=== PATIENT | male | born 1945 | race Caucasian/White ===

== ENCOUNTER 2018-12-24 09:58 | Emergency (ER) | payer MEDICARE, SELFPAY ==
[2018-12-24 10:03] VITALS: BP 145/60; PULSE 80; RESP 16; TEMP 36.4; O2SAT 99
[2018-12-24 10:32] LABS: Add Manual Diff / Slide Review NO; Basophils Absolute Auto 0 /uL (0-100); Basophils Percent Auto 0.2 % (0-2); Eosinophils Absolute Auto 0 /uL (0-450); Eosinophils Percent Auto 0.1 % (2-4); Hematocrit 45.4 % (41-53); Hemoglobin 15.8 g/dL (13.5-17.5); Lymphocytes Absolute Auto 1200 /uL (1100-4500); Lymphocytes Percent Auto 8.1 % (25-40); Mean Corpuscular HGB Conc 34.8 % (30-36); Mean Corpuscular Hemoglobin 29.9 PG (26-34); Mean Corpuscular Volume 85.7 fL (80-100); Monocytes Absolute Auto 1700 /uL (0-900); Monocytes Percent Auto 11.8 % (3-14); Neutrophils Absolute Auto 11800 /uL (1500-7000); Neutrophils Percent Auto 79.8 % (50-75); Platelet Count 149 X10^3/uL (150-400); Red Blood Cell Count 5.29 X10^6/uL (4.5-5.9); Red Cell Distribution Width 14.4 % (11.6-14.8); White Blood Cell Count 14.7 X10^3/uL (4.5-11.0)
[2018-12-24 10:33] LABS: Alanine Aminotransferase 23 IU/L (21-72); Albumin 4.5 g/dL (3.5-5.0); Albumin Globulin Ratio 1.3 (1.0-2.8); Alkaline Phosphatase 84 U/L (38-126); Aspartate Aminotransferase 30 IU/L (17-59); BUN Creatinine Ratio 16.7 (6-22); Bilirubin Total 1.4 mg/dL (0.2-1.3); Blood Urea Nitrogen 25 mg/dL (9-20); Calcium 9.2 mg/dL (8.4-10.2); Carbon Dioxide 28 mmol/L (22-32); Chloride 96 mmol/L (98-107); Estimated Glomerular Filt Rate 45.9 mL/min (>60); Globulin 3.4 g/dL (1.7-4.1); Glucose 114 mg/dL (80-110); HEMOLYSIS < 15 (0-50); Potassium 3.3 mmol/L (3.4-5.1); Sodium 137 mmol/L (137-145); Total Protein 7.9 g/dL (6.3-8.2)
--- NOTE | 2018-12-24 11:37 | ED_ITS ---
HPI - Abdominal Pain General Chief Complaint: Abdominal Pain Stated Complaint: appendicitis Time Seen by Provider: 12/24/18 10:14 Source: patient and family Mode of arrival: ambulatory Limitations: no limitations History of Present Illness HPI narrative: Patient presents emergency department complaining of nausea and abdominal pain for the last 3 days. He states it started 3 evenings ago after dinner, mainly with nausea. Patient states he vomited everything he had just eaten. States he continued to feel nauseated throughout the night and had further episodes of vomiting, but by the next morning, he was able to eat and hold food down all day until that evening when he began to vomit again. Patient states he had developed a right-sided abdominal pain which was in his right flank and lower quadrant and spreading across his low abdomen to the left side. Patient states that he continued to have the pain but that after taking Pepto- Bismol yesterday morning, he has not had any further episodes of vomiting. Patient states he has never had any surgery on his abdomen, and still has his appendix and gallbladder. He states that he believes he had diverticulitis in the past, and that his doctor gave him a single dose of a medication, which completely got rid of the symptoms. Patient states he has had chills and feels as though he has had fevers also. No body aches. No dysuria. No hematuria. No diarrhea. No blood in his stool. No tarry stools. No hematemesis. No other complaints at this time. Patient has not eaten anything for the last 2 days he common states he just does not feel like eating. He has not been drinking very much either, according to his . Related Data Home Medications Medication Instructions Recorded Confirmed Vitamin D3 1 cap PO QPM 12/24/18 12/24/18 amlodipine 5 mg PO DAILY 12/24/18 12/24/18 aspirin 81 mg PO DAILY 12/24/18 12/24/18 atorvastatin 20 mg PO DAILY 12/24/18 12/24/18 diclofenac sodium 1 applic TOPICAL DIRECTED 12/24/18 12/24/18 hydrochlorothiazide 25 mg PO DAILY 12/24/18 12/24/18 levothyroxine 25 mcg PO DAILY 12/24/18 12/24/18 losartan 50 mg PO BID 12/24/18 12/24/18 pramipexole 1 mg PO BID 12/24/18 12/24/18 turmeric 1 cap PO QPM 12/24/18 12/24/18 Previous Rx's Medication Instructions Recorded hydrocodone-acetaminophen 1 tab PO Q4-6H PRN #20 tab 12/24/18 ondansetron 4 mg PO Q6H PRN #14 tab 12/24/18 tamsulosin [Flomax] 0.4 mg PO DAILY #10 cap 12/24/18 Review of Systems Constitutional Denies chills, Denies fever(s), Denies lethargy and Denies weakness Eyes Denies change in vision, Denies eye discharge, Denies irritation and Denies loss of vision ENT Ears, Nose, Mouth, and Throat: Denies change in voice, Denies neck pain and Denies sore throat Cardiovascular Denies chest pain, Denies irregular heart rhythm, Denies lightheadedness, Denies palpitations, Denies dyspnea, Denies dyspnea on exertion and Denies orthopnea Respiratory Denies cough, Denies dyspnea, Denies dyspnea on exertion and Denies wheezing Gastrointestinal Gastrointestinal: Reports abdominal pain, Denies change in bowel habits, Denies diarrhea, Reports nausea and Denies vomiting Genitourinary Denies hematuria, Denies flank pain, Denies urinary incontinence and Denies urinary urgency Musculoskeletal Denies neck pain Integumentary/Breasts Denies pruritus, Denies erythema, Denies rash and Denies wounds Neurologic Denies confusion, Denies loss of vision and Denies weakness Psychiatric Denies anxiety, Denies confusion, Denies depression, Denies homicidal ideation and Denies suicidal ideation Endocrine Denies palpitations Hematologic/Lymphatic Denies easy bruising Allergic/Immunologic Denies wheezing PFSH Medical History (Updated 12/24/18 @ 13:37 by Rae Ferrell MD) HTN (hypertension) (Acute) Surgical History No pertinent past surgical history (Acute) Social History Smoking Status: Never smoker Social History Smoking Status: Never smoker Exam Initial Vital Signs Initial Vital Signs: Vital Signs Temperature 97.6 F 12/24/18 10:03 Pulse Rate 80 12/24/18 10:03 Respiratory Rate 16 12/24/18 10:03 Blood Pressure 145/60 H 12/24/18 10:03 Pulse Oximetry 99 12/24/18 10:03 Const General: cooperative and well developed Nutritional Appearance: well nourished Orientation: alert, awake, oriented x3 and not confused [facility] Head: normocephalic and atraumatic Ears: external ears normal Nose: external nose normal and No nasal discharge Face and sinus: face symmetric and No dry mucous membranes Mouth: oral mucosae normal and moist mucous membranes Teeth and gingiva: dentition normal Eyes General: appearance normal, both eyes and all related structures Eyelids: eyelids normal Conjunctivae: conjunctivae normal Sclera: sclerae normal Pupils: PERRL EOM: EOM intact bilaterally Neck Neck: normal visual inspection, trachea midline, No lymphadenopathy, No midline deformity and No JVD Lymphatic: No lymphedema Chest Chest: normal inspection of the chest Resp Effort & Inspection: normal respiratory effort, able to speak in complete sentences, no respiratory distress and no use of accessory muscles Auscultation: clear to auscultation bilaterally, no rales, no rhonchi and no wheezes Cardio Rate: regular rate Rhythm: regular rhythm Heart Sounds: no click, no gallops, no murmurs and no rubs Pulses: normal peripheral pulses GI Inspection: non-distended Palpation: soft, no hepatosplenomegaly, No guarding, No pulsatile mass and tender (Moderate, right lower quadrant and mild right flank. No rebound) Auscultation: normal bowel sounds Back/Spine/Pelvis Back: No CVA tenderness Cervical Spine: cervical ROM normal and No pain with cervical ROM Thoracic/Lumbar Spine: thoracic and lumbar spine normal to inspection Skin General: no rashes or lesions noted, No jaundice and No petechiae Neuro General: alert, oriented x3, gait normal and no focal motor deficits Speech: speech normal Extrem General: full ROM, no clubbing, cyanosis or edema, no pedal edema and no calf tenderness Psych Appearance: well kempt Mental Status: mental status grossly normal Attitude: cooperative Thought Content: normal and suicidality Judgment: judgment good Course Course Narrative: Patient was worked up with laboratory studies, urinalysis and CT of the abdomen and pelvis. He was treated symptomatically with IV fluids, Toradol, and Dilaudid. Patient's CT showed a large, impacted calculus in the distal right ureter. I discussed the case with Dr. Hermosillo which, who is on- call for urology. He stated that this stone would most likely not pass on its own, and agreed to see the patient in expedited follow-up. We did call Dr. Hermosillo's office, who stated that Dr. Hermosillo did not have any openings in his schedule, but that they would speak with him tomorrow to see when the patient could possibly be seen. The patient has been informed request, he will need to be NPO after midnight on the day of his appointment. We have discussed home management of the pain, as well as the usual indications for return. Orders Ordered: ED Orders 12/24/18 10:15 CMP [Comprehensive Metabolic Panel] Stat Complete Blood Count AUTO DIFF Stat 12/24/18 12:14 CT abdomen pelvis w con Stat 12/24/18 13:10 Urine Microscopic Stat Discontinued Medications Hydromorphone HCl (Dilaudid) 1 mg IV NOW ONE Stop: 12/24/18 11:42 Last Admin: 12/24/18 11:46 Dose: 1 mg Sodium Chloride (Normal Saline 0.9%) 1,000 mls @ 1,000 mls/hr IV BOLUS ONE Stop: 12/24/18 12:40 Last Infusion: 12/24/18 12:50 Dose: 0 mls/hr Admin: 12/24/18 11:46 Dose: 1,000 mls/hr Ketorolac Tromethamine (Toradol) 15 mg IV NOW ONE Stop: 12/24/18 11:42 Last Admin: 12/24/18 11:46 Dose: 15 mg Ondansetron HCl (Zofran) 4 mg IV NOW ONE Stop: 12/24/18 11:42 Last Admin: 12/24/18 11:46 Dose: 4 mg Vital Signs - 8 hr 12/24/18 10:03 12/24/18 12:15 12/24/18 12:51 Temperature 97.6 F Pulse Rate 80 60 62 Respiratory Rate 16 15 Blood Pressure 145/60 H Blood Pressure [Right Arm] 116/47 L 114/43 L Pulse Oximetry 99 97 97 12/24/18 13:00 Temperature Pulse Rate 66 Respiratory Rate 17 Blood Pressure Blood Pressure [Right Arm] 113/54 L Pulse Oximetry 100 MDM - Abdominal Pain Medical Records Attestation: I reviewed the patient's medical records. Lab Data Attestation: I reviewed the patient's lab results. Result diagrams: 12/24/18 10:15 12/24/18 10:15 Lab Results 12/24/18 12/24/18 12/24/18 Range/Units 10:15 10:15 13:10 WBC 14.7 H (4.5-11.0) X10^3/uL RBC 5.29 (4.5-5.9) X10^6/uL Hgb 15.8 (13.5-17.5) g/dL Hct 45.4 (41-53) % MCV 85.7 (80-100) fL MCH 29.9 (26-34) PG MCHC 34.8 (30-36) % RDW 14.4 (11.6-14.8) % Plt Count 149 L (150-400) X10^3/uL Neut % (Auto) 79.8 H (50-75) % Lymph % (Auto) 8.1 L (25-40) % [place] % (Auto) 11.8 (3-14) % Eos % (Auto) 0.1 L (2-4) % Baso % (Auto) 0.2 (0-2) % Neut # (Auto) 43483 H (0573-0874) /uL Lymph # (Auto) 1200 (7735-9403) /uL [place] # (Auto) 1700 H (0-900) /uL Eos # (Auto) 0 (0-450) /uL Baso # (Auto) 0 (0-100) /uL Sodium 137 (137-145) mmol/L Potassium 3.3 L (3.4-5.1) mmol/L Chloride 96 L (98-107) mmol/L Carbon Dioxide 28 (22-32) mmol/L BUN 25 H (9-20) mg/dL Creatinine 1.50 H (0.66-1.25) mg/dL Estimated GFR 45.9 L (>60) mL/min BUN/Creatinine Ratio 16.7 (6-22) Glucose 114 H (80-110) mg/dL Calcium 9.2 (8.4-10.2) mg/dL Total Bilirubin 1.4 H (0.2-1.3) mg/dL AST 30 (17-59) IU/L ALT 23 (21-72) IU/L Alkaline Phosphatase 84 (38-126) U/L Total Protein 7.9 (6.3-8.2) g/dL Albumin 4.5 (3.5-5.0) g/dL Globulin 3.4 (1.7-4.1) g/dL Albumin/Globulin Ratio 1.3 (1.0-2.8) Urine RBC 1-5/hpf (0-5/HPF) Urine WBC 1-5/hpf (0-5/HPF) Ur Squamous Epith Cells 0-1 /hpf (0-5/HPF) Uric Acid Crystals Occasional Urine Bacteria Few (2-10) H (None) Ur Culture Indicated? Cult not indicated Point of care testing: Urine Dip Bedside Urine Glucose Negative Bedside Urine Bilirubin - Negative Bedside Urine Ketone + 15 Urine Specific [place] 1.015 Bedside Urine Occult Blood ++ Bedside Urine pH 5.5 Bedside Urine Protein + 30 Bedside Urine Urobilinogen - Negative Bedside Urine Nitrite - Negative Bedside Urine Leukocytes - Negative Esterase Imaging Data CT scan - abdomen: Radiologist's impression: PROCEDURE: CT ABDOMEN PELVIS W CON INDICATIONS: RLQ abd pain TECHNIQUE: After the administration of intravenous contrast, 5 mm thick sections acquired from the diaphragm to the symphysis. 5 mm coronal and sagittal reformats were acquired. For radiation dose reduction, the following was used: automated exposure control, adjustment of mA and/or kV according to patient size. COMPARISON: None. FINDINGS: Image quality: Excellent. ABDOMEN: Lung bases: Lung bases are clear. Heart size is normal. Solid organs: Liver is normal in size and enhancement. Gallbladder appears normal. Biliary system is non dilated. Pancreas enhances normally. Spleen is normal in size and enhancement. No adrenal nodules. Kidneys demonstrate normal size but asymmetric reduced right-sided enhancement, associated with moderately severe right-sided hydronephrosis and hydroureter to the far distal ureteral level where an impacted 6 x 8 mm calculus is present with a craniocaudad length of 11 mm, and an internal radiodensity of 380 Hounsfield units. Peritoneum and bowel: Bowel loops demonstrate normal wall thickness and calibe r. No free fluid or air. Nodes and vessels: No retroperitoneal or mesenteric adenopathy by size criteria. Aorta and inferior vena cava are normal in size. Miscellaneous: No ventral hernias. PELVIS: Genitourinary: Bladder wall thickness is normal. Miscellaneous: No inguinal hernias or adenopathy. Bones: No suspicious bony lesions. No vertebral body compression fractures. IMPRESSION: Impacted large far distal right ureteral stone, producing moderately severe hydronephrosis and hydroureter to the level of the calculus which measures up to 6 x 8 x 11 mm, with internal relatively low density contents. No evidence of concurrent acute appendicitis. Dictated by: Khari Dang M.D. on 12/24/2018 at 12:26 Approved by: Khari Dang M.D. on 12/24/2018 at 12:30 Discharge Plan Departure Patient Disposition: Home Clinical Impression: Kidney stone on right side Instructions: DI for Kidney Stones Activity Restrictions/Additional Instructions: Your CT scan shows a large kidney stone on the right that is stuck in the latter part of the ureter (tube between kidney and bladder). Unfortunately, due to the size and dimensions of this stone, it will most likely not pass on its own. As such, your case has been discussed with the on-call urologist, Dr. Hermosillo, who would like to follow up with you in his clinic. He does not have any openings in his schedule tomorrow, so his office staff will talk to him tomorrow and then give you a call. You will most likely have an appointment in the next couple of days, and Dr. Hermosillo has requested that you do not eat or drink anything after midnight leading into the day of your appointment. Please drink plenty of fluids, and take the medications that have been prescribed for you, as needed. If he develops fevers or pain or burning with urination, please be re-evaluated medically immediately. Prescriptions: New hydrocodone-acetaminophen 5-325 mg tablet 1 tab PO Q4-6H PRN (Reason: pain) Qty: 20 RF: 0 tamsulosin [Flomax] 0.4 mg capsule 0.4 mg PO DAILY Qty: 10 RF: 0 ondansetron 4 mg tablet,disintegrating 4 mg PO Q6H PRN (Reason: nausea and vomiting) Qty: 14 RF: 0 No Action losartan 50 mg tablet 50 mg PO BID RF: 0 pramipexole 1 mg tablet 1 mg PO BID RF: 0 atorvastatin 20 mg tablet 20 mg PO DAILY RF: 0 amlodipine 5 mg tablet 5 mg PO DAILY RF: 0 levothyroxine 25 mcg tablet 25 mcg PO DAILY RF: 0 hydrochlorothiazide 25 mg tablet 25 mg PO DAILY RF: 0 diclofenac sodium 1 % gel 1 applic topical DIRECTED RF: 0 Vitamin D3 1 cap PO QPM RF: 0 turmeric 1 cap PO QPM RF: 0 aspirin 81 mg Tablet,Delayed Release (Dr/Ec) 81 mg PO DAILY RF: 0 Referrals: Abel Hermosillo MD [Physician] -
[2018-12-24] MEDS: SODIUM CHLORIDE 0.9% 1,000 ML 1000 ML IV (11:46)
[2018-12-24] MEDS: HYDROMORPHONE 1 MG INJ IV (11:46)
[2018-12-24] MEDS: KETOROLAC 60 MG/2 ML VIAL 15 MG IV (11:46)
[2018-12-24] MEDS: ONDANSETRON 4 MG/2 ML INJ IV (11:46)
--- NOTE | 2018-12-24 12:14 | DI.CT.S_ITS ---
PROCEDURE: CT ABDOMEN PELVIS W CON INDICATIONS: RLQ abd pain TECHNIQUE: After the administration of intravenous contrast, 5 mm thick sections acquired from the diaphragm to the symphysis. 5 mm coronal and sagittal reformats were acquired. For radiation dose reduction, the following was used: automated exposure control, adjustment of mA and/or kV according to patient size. COMPARISON: None. FINDINGS: Image quality: Excellent. ABDOMEN: Lung bases: Lung bases are clear. Heart size is normal. Solid organs: Liver is normal in size and enhancement. Gallbladder appears normal. Biliary system is non dilated. Pancreas enhances normally. Spleen is normal in size and enhancement. No adrenal nodules. Kidneys demonstrate normal size but asymmetric reduced right-sided enhancement, associated with moderately severe right-sided hydronephrosis and hydroureter to the far distal ureteral level where an impacted 6 x 8 mm calculus is present with a craniocaudad length of 11 mm, and an internal radiodensity of 380 Hounsfield units. Peritoneum and bowel: Bowel loops demonstrate normal wall thickness and caliber. No free fluid or air. Nodes and vessels: No retroperitoneal or mesenteric adenopathy by size criteria. Aorta and inferior vena cava are normal in size. Miscellaneous: No ventral hernias. PELVIS: Genitourinary: Bladder wall thickness is normal. Miscellaneous: No inguinal hernias or adenopathy. Bones: No suspicious bony lesions. No vertebral body compression fractures. IMPRESSION: Impacted large far distal right ureteral stone, producing moderately severe hydronephrosis and hydroureter to the level of the calculus which measures up to 6 x 8 x 11 mm, with internal relatively low density contents. No evidence of concurrent acute appendicitis. Dictated by: Khari Dang M.D. on 12/24/2018 at 12:26 Approved by: Khari Dang M.D. on 12/24/2018 at 12:30
[2018-12-24 12:15] VITALS: BP 116/47; PULSE 60; RESP 15; O2SAT 97
[2018-12-24 12:51] VITALS: BP 114/43; PULSE 62; O2SAT 97
[2018-12-24 13:00] VITALS: BP 113/54; PULSE 66; RESP 17; O2SAT 100
[2018-12-24 13:34] LABS: Bacteria Urine Few (2-10); RBC Urine 1-5/HPF (0-5/HPF); Squamous Epithelial Cell Urine 0-1 /HPF (0-5/HPF); Uric Acid Crystals Urine Occasional; WBC Urine 1-5/HPF (0-5/HPF)
[2018-12-24 13:35] LABS: Culture Indicated Urine Cult Not Indicated
[2018-12-24 14:06] VITALS: BP 115/45; PULSE 62; RESP 16; O2SAT 98
== END 2018-12-24 14:07 | disposition home or self-care (01) ==
PROVIDERS: Emergency Provider Emergency Medicine
DX: N20.0 Calculus of kidney (principal)
CPT/HCPCS: 36591; 74177; 80053; 81003; 81015; 85025; 96361; 96374; 96375; 99284; 99285; J1170; J1885; J2405; Q9967